=== PATIENT | female | born 1955 | race Caucasian/White ===

== ENCOUNTER 2022-08-25 11:34 | Outpatient (CLI) | payer MEDICARE, OTHER, SELFPAY ==
[2022-08-25 15:26] LABS: Anion Gap 9 mmol/L (8-16); Blood Urea Nitrogen 17 mg/dL (7-17); Calcium 9.1 mg/dL (8.4-10.2); Carbon Dioxide 26 mmol/L (22-30); Chloride 102 mmol/L (98-107); Estimated Glomerular Filt Rate > 60; Glucose 75 mg/dL (65-110); Magnesium 2.3 mg/dL (1.6-2.3); Sodium 137 mmol/L (137-145)
== END 2022-08-25 11:35 | disposition home or self-care (01) ==
PROVIDERS: Visit Provider Nurse Practitioner Adult Health
DX: I48.0 Paroxysmal atrial fibrillation (principal)
CPT/HCPCS: 36415; 80048; 83735; 84443

== ENCOUNTER 2023-07-10 14:09 | Outpatient (CLI) | payer MEDICARE, OTHER, SELFPAY ==
--- NOTE | ~2023-07-10 | CT_ITS ---
EXAMINATION:CT diagnostic chest wo con DATE: 07/10/2023 14:31 INDICATION: Aortic root dilatation. TECHNIQUE: Computed tomography (CT) of the chest was performed without intravenous contrast. Automate d exposure control and iterative reconstruction technique were employed. The dose-length product (DLP ) was 212.41 mGy-cm. COMPARISON: None. FINDINGS: There is mild scarring in paraspinal right lower lobe. Calcified right lung nodules are con sistent with old granulomatous disease. There is mild atelectasis on the left. No pleural effusion. T here is left atrial enlargement of the heart. There are coronary artery calcifications. There are yane nges of mitral valve replacement. There are measures 4.1 cm at the sinuses of Valsalva, 3.9 cm at the sinotubular junction, 4.1 cm at the mid ascending aorta, 3.0 cm at the aortic isthmus, and 2.5 cm in the mid descending aorta. Aortic atherosclerosis is noted. There are changes of cholecystectomy. The re is a 7 mm cyst in the spleen. There is moderate thoracic spondylosis. IMPRESSION: 1. Ectasia of ascending aorta measuring 4.1 cm. Reviewed, dictated and finalized at location E.
== END 2023-07-10 14:10 | disposition home or self-care (01) ==
PROVIDERS: PCP Family Medicine; Visit Provider Internal Medicine Cardiovascular Disease
DX: I77.810 Thoracic aortic ectasia (principal)
CPT/HCPCS: 71250

== ENCOUNTER 2023-07-13 10:41 | Emergency (ER) | payer MEDICARE, OTHER, SELFPAY ==
[2023-07-13] VITALS (34 sets, daily range): BP systolic 100–141; BP diastolic 74–129; PULSE 72–138; RESP 12–25; TEMP 35.9–37; O2SAT 93–100
--- NOTE | ~2023-07-13 | CT_ITS ---
. EXAMINATION: CT brain wo con DATE: 07/13/2023 14:37 INDICATION: Syncopal episodes diaphoresis, paleness TECHNIQUE: Computed tomography (CT) of the head was performed without intravenous contrast. The mA wa s adjusted according to patient size. Iterative reconstruction technique was employed. Exam dose: 60 5.33 mGy-cm total exam DLP. COMPARISON: None FINDINGS: There are bilateral carotid siphon internal carotid artery calcifications in addition to le ft vertebral artery calcification. Examination is somewhat limited due to motion artifact. No intracranial mass lesion or hemorrhage or cerebrovascular accident, midline shift or mass effect i s detected. Normal ventricular size. No subdural or epidural hematoma is identified. There is an opacified posterior left ethmoid air cell. No fracture or bone destruction of the cranial vault. IMPRESSION: Limited examination due to motion artifact; no acute intracranial finding is noted Intracranial cerebral atherosclerosis Reviewed, dictated and finalized at Location A. Reviewed, dictated and finalized at location L.
--- NOTE | ~2023-07-13 | XR_ITS ---
EXAMINATION: XR chest 1V portable INDICATION: Near syncope TECHNIQUE: Portable AP chest at 1652 hours COMPARISON: None available FINDINGS: The lungs are free of acute opacities. No pleural effusion or pneumothorax. Cardiomegaly is noted. There are changes of coronary artery bypass grafting and mitral valve replacement. Cholecyste ctomy clips are noted. IMPRESSION: 1. No acute cardiopulmonary abnormality. Reviewed, dictated and finalized at location F.
--- NOTE | 2023-07-13 10:42 | ECG_ITS ---
Measurements Intervals [place] Rate: 69 P: [place]: 0 QRS: -14 QRSD: 114 T: 80 QT: 398 QTc: 427 Interpretive Statements ATRIAL FIBRILLATION INCOMPLETE RIGHT BUNDLE BRANCH BLOCK PROBABLE SEPTAL MYOCARDIAL INFARCTION , OF INDETERMINATE AGE ABNORMAL ECG NO PREVIOUS ECG AVAILABLE FOR COMPARISON Electronically Signed On 07-13-2023 17:19:07 CDT by Emmanuel Eubanks M.D.
[2023-07-13 11:15] LABS: Basophils Absolute Auto 0.1 K/mm3 (0.0-0.1); Basophils Percent Auto 0.6 % (0.2-1.2); Eosinophils Absolute Auto 0.1 K/mm3 (0-0.3); Eosinophils Percent Auto 1.1 % (0-4.4); Hematocrit 46.9 % (37.0-47.0); Hemoglobin 14.8 g/dL (12.0-15.0); Immature Granulocyte Absolute 0.08 K/mm3 (0.00-0.031); Immature Granulocyte Percent A 0.7 % (0-0.5); Lymphocytes Absolute Auto 0.89 K/mm3 (0.9-3.2); Lymphocytes Percent Auto 8.2 % (18.3-44.2); Mean Corpuscular HGB Conc 31.6 g/dl (32-36); Mean Corpuscular Hemoglobin 29.7 pg (26-34); Mean Corpuscular Volume 94.2 fl (80-100); Mean Platelet Volume 9.3 fl (7.4-10.4); Monocytes Absolute Auto 0.8 K/mm3 (0.1-0.6); Monocytes Percent Auto 7.2 % (2.6-8.5); Neutrophils Absolute Auto 8.9 K/mm3 (1.3-6.7); Neutrophils Percent Auto 82.2 % (45.5-73.1); Platelet Count Result 306 k/mm3 (150-375); Red Blood Count 4.98 M/mm3 (4.2-5.4); Red Cell Distribution Width 14.2 % (11.5-14.5); White Blood Count 10.8 K/mm3 (4.5-10.0)
[2023-07-13 11:26] LABS: Alanine Aminotransferase 22 U/L (6-35); Albumin Level 4.6 g/dL (3.5-5.1); Alkaline Phosphatase 97 U/L (38-126); Anion Gap 10 mmol/L (8-16); Aspartate Amino Transferase 30 U/L (14-36); Bilirubin,Total 0.6 mg/dL (0.2-1.3); Blood Urea Nitrogen 27 mg/dL (7-17); Calcium 9.5 mg/dL (8.4-10.2); Carbon Dioxide 25 mmol/L (22-30); Chloride 103 mmol/L (98-107); Estimated CRCL calculation 57 ml/min; Estimated Glomerular Filt Rate > 60; Glucose 93 mg/dL (65-110); Potassium 3.4 mmol/L (3.4-5.0); Sodium 138 mmol/L (137-145)
[2023-07-13 14:39] LABS: Magnesium 2.1 mg/dL (1.6-2.3)
[2023-07-13 14:51] LABS: Troponin I < 0.012 ng/mL (0.000-0.034)
--- NOTE | 2023-07-13 15:12 | ECG_ITS ---
Measurements Intervals [place] Rate: 118 P: [place]: 0 QRS: -15 QRSD: 105 T: 69 QT: 320 QTc: 448 Interpretive Statements ATRIAL FIBRILLATION WITH RAPID VENTRICULAR RESPONSE INCOMPLETE RIGHT BUNDLE BRANCH BLOCK POSSIBLE SEPTAL MYOCARDIAL INFARCTION , PROBABLY OLD [30 ms Q WAVE IN V1/V2] ABNORMAL ECG COMPARED TO ECG 07/13/2023 10:59:31 NO SIGNIFICANT CHANGES Electronically Signed On 07-13-2023 17:25:08 CDT by Emmanuel Eubanks M.D.
[2023-07-13] MEDS: METOPROLOL TARTRATE INJ 5 MG/5 ML VIAL IV PUSH (15:24)
[2023-07-13] MEDS: SODIUM CHLORIDE 0.9% IV 1,000 ML 999 ML IV CONT (15:24)
[2023-07-13 15:33] LABS: Appearance Urine Cloudy (Clear); Bacteria Urine None Seen /hpf; Bilirubin Urine Negative (Negative); Blood Urine Trace (Negative); Color Urine Yellow (Yellow); Glucose Urine UA Negative (Negative); Ketones Urine Negative (Negative); Leukocyte Esterase Ur 3+ LEU/UL (Negative); Need Manual Microscopic Reviewed; Nitrate Urine Negative (Negative); Protein Urine Negative (Negative); RBC Urine 0-2 /hpf (0-2); Squamous Epithelial Cell Urine Occasional /hpf (Few); Urobilinogen Urine 0.2 mg/dL (<2.0); WBC Urine 51-100 /hpf; pH Urine 5.5 (5.0-9.0)
[2023-07-13 15:34] LABS: Add Urine Microscopic? YES
[2023-07-13 15:48] LABS: INR 2.4
[2023-07-13 15:49] LABS: Partial Thromboplastin Time 31.4 SECONDS (22.3-36.8)
--- NOTE | 2023-07-13 16:28 | ED.DIZZY ---
HPI - Dizziness General Chief Complaint: Syncope Stated Complaint: Syncope Time Seen by Provider: 07/13/23 14:14 Source: patient Mode of arrival: EMS Limitations: no limitations History of Present Illness HPI Narrative: Patient is a 68-year-old female, with pAFIB on warfarin, mechanical mitral valve repair, HTN, who presents to the ED via EMS with report of near syncope. Patient reports she was fasting for outpatient blood work this morning since midnight last night. She had the blood work done this am and then went shopping at a local [place]. Upon walking into [place], she developed diaphoresis, nausea, lightheadedness. She felt like she was about to pass out. She was able to get to the ground and does not believe that she fully lost consciousness. EMS was then called to bring her here. Patient states she feels better currently, but did still feel lightheaded with standing upright in the ED. She denies chest pain, shortness of breath, palpitations, vomiting, abdominal pain, focal weakness or numbness, vision changes. Related Data Allergies Allergy/AdvReac Type Severity Reaction Status Date / Time Scyujmp-SBN-KpM Reductase Allergy Rash Verified 07/13/23 16:49 Inhibitor meperidine [From Demerol] AdvReac Hallucinati Verified 07/13/23 16:49 ng Review of Systems Review of Systems: CONSTITUTIONAL: See HPI. EYES: Denies visual changes. CARDIOVASCULAR: Denies chest pain, palpitations, or edema. RESPIRATORY: Denies cough or dyspnea. GASTROINTESTINAL: See HPI. MUSCULOSKELETAL: Denies back pain, joint pain, or myalgia. NEUROLOGIC: See HPI. All systems reviewed & are unremarkable except as noted in HPI and below Exam Narrative: GENERAL: Well appearing, well-nourished, non-toxic, in no acute distress. HEAD: Normocephalic, atraumatic. EYES: PERRL/EOMI, conjunctivae clear bilaterally. No nystagmus. NECK: Supple. No adenopathy, no masses. RESPIRATORY: Airway patent, respirations nonlabored. Clear to auscultation bilaterally, no rales, rhonchi, wheezing. CARDIOVASCULAR: Tachycardic with irregular rhythm without murmurs, rubs, or gallops. Radial pulses 2+ and equal bilaterally. MUSCULOSKELETAL: Moves all extremities. Strength/ROM intact without gross deformities or TTP. No edema. No calf tenderness. SKIN: Warm, dry, normal color. No rashes. NEURO: A&O X3. Speech clear. Follows commands. CN II-XII intact. Sensation grossly intact. Steady gait. No ataxic movements. Strength 5/5 in upper and lower extremities bilaterally. No pronator drift. Equal community health advocate strength bilaterally. PSYCHIATRIC: Appropriate mood and affect. Normal interaction. Course Vital Signs Vital signs: Vital Signs Temperature 98.6 F 07/13/23 10:44 Pulse Rate 92 07/13/23 10:44 Respiratory Rate 18 07/13/23 10:44 Blood Pressure 100/74 07/13/23 10:44 Pulse Oximetry 93 07/13/23 10:44 Oxygen Delivery Room Air 07/13/23 10:44 Temperature 97.2 F L 07/13/23 17:31 Pulse Rate 93 07/13/23 19:00 Respiratory Rate 16 07/13/23 19:00 Blood Pressure 135/99 H 07/13/23 18:01 Pulse Oximetry 97 07/13/23 19:00 Oxygen Delivery Room Air 07/13/23 10:44 MDM - Dizziness MDM Narrative Medical decision making narrative: Patient presented to ED with near syncopal episode. She did not fully lose consciousness. Asymptomatic at the time of my evaluation. Denying lightheadedness, nausea, chest pain, difficulty breathing. Description of sx's seems most consistent with vasovagal episode, prodrome of lightheadedness, occurred after fasting overnight into the morning. Upon arrival to the ED, patient with normal heart rate, A-fib. By the time of my evaluation, patient was noted to be in A-fib with RVR with rates into 120s. Neurologically intact. No focal deficits. Fluids initiated with dose of IV metoprolol. Basic laboratory studies fairly unremarkable. Minimal leukocytosis of 10.8. CMP unremarkable. Stable electrolytes. Urine consistent with in
--- NOTE | 2023-07-13 16:46 | PC.NURSE ---
Pt refusing diltiazem until her provider consults with her cards doc, Sabine. MYLA Mays, at bedside to speak with her.
[2023-07-13 16:56] LABS: Troponin I < 0.012 ng/mL (0.000-0.034)
[2023-07-13] MEDS: SOTALOL HCL 40 MG TABLET PO (17:30)
[2023-07-13] MEDS: WARFARIN (*PBKC) 3 MG TABLET PO (17:31)
[2023-07-13] MEDS: dilTIAZem HCl INJ 25 MG/5 ML VIAL 10 MG IV PUSH (17:33)
--- NOTE | 2023-07-13 19:06 | ECG_ITS ---
Measurements Intervals [place] Rate: 67 P: -40 [place]: 137 QRS: -16 QRSD: 106 T: 82 QT: 407 QTc: 430 Interpretive Statements SINUS RHYTHM INCOMPLETE RIGHT BUNDLE BRANCH BLOCK [90+ ms QRS DURATION, TERMINAL R IN V1/V2, 40+ ms S IN I/aVL/V4/V5/V6] COMPARED TO ECG 07/13/2023 15:04:45 SINUS RHYTHM REPLACES ATRIAL FIBRILLATION Electronically Signed On 07-15-2023 8:43:26 CDT by Venu Arshad M.D.
== END 2023-07-13 19:42 | disposition home or self-care (01) ==
PROVIDERS: Emergency Medicine; Emergency Provider Physician Assistant; PCP Family Medicine
DX: R55 Syncope and collapse (principal); I48.91 Unspecified atrial fibrillation; N30.00 Acute cystitis without hematuria; I10 Essential (primary) hypertension; I67.2 Cerebral atherosclerosis; Z79.01 Long term (current) use of anticoagulants; I45.10 Unspecified right bundle-branch block; R94.31 Abnormal electrocardiogram [ECG] [EKG]
CPT/HCPCS: 36415; 70450; 71045; 80053; 81001; 83735; 84484; 85025; 85610; 85730; 87086; 87088; 93005; 96361; 96365; 96375; 99284; A9270; J0696; J7030

== ENCOUNTER 2025-02-11 14:37 | Outpatient (CLI) | payer MEDICARE, OTHER, SELFPAY ==
--- NOTE | ~2025-02-11 | CT_ITS ---
CT Scan of the Chest without Contrast: Clinical Indication: Aortic root dilatation Technique: Contiguous sections were acquired throughout the chest without intravenous contrast. Dose reduction technique was used on this scan by utilizing automated exposure control and iterative recon struction technique. The dose-length product (DLP) was 216.50 mGy-cm. COMPARISON: 07/10/2023 Findings: There is no evidence of any significant mediastinal, hilar or axillary lymphadenopathy. Extensive cor onary artery calcifications are present. Status post probable prior CABG and mitral valve replacement . Aortic root measures up to 4.2 cm in diameter. There is no evidence of pleural or pericardial effusion. The lungs are clear. No pulmonary nodules or infiltrates are noted. Images through the upper abdomen reveal no abnormalities. Impression: Aortic root measures up to 4.2 cm in diameter. Probable prior CABG and mitral valve replacement. Reviewed, dictated and finalized at [facility]. Impression: Aortic root measures up to 4.2 cm in diameter. Probable prior CABG and mitral valve replacement.
--- OUTSIDE RECORDS SUMMARY | 2025-02-11 10:56 | XMS_ITS | Encounter Summary ---
Author Organization [facility] Address [address] [facility] Attn: Epic Prelude ADT ZACHARIAHWINSOME ODELL CASI [address] Care Team Providers Care Line Pilot Name Role Phone Unavailable Primary Care Provider Unavailabl e Encounter Details Date Type Department Care Team (Late st Contact Info) Description 11/21/1995 Outpatient Historical Venu Martins Social History Tobacco Use Types Packs/Day Years Used Date Smoking Tobacco: Never Assessed Comments Unknown Sex and Gender Information Value Date Recorded Sex Assigned at Not on file Legal Sex Female 2:57 AM MANAGEMENT ACCOUNTANT Gender Identity Not on file Sexual Orientation Not on file documented as of this encounter Plan of Treatment Not on file documented as of this encounter Visit Diagnoses Not on filedocumented in this encounter
--- OUTSIDE RECORDS SUMMARY | 2025-02-11 10:56 | XMS_ITS | Encounter Summary ---
Author Organization [facility] Healthcare Address [address] [place] [address] Care Team Providers Care Rubber Stamp Die Inspector Name Role Phone Brionna Antony MD Primary Care Provider [phone] Shannon Beck Unavailable [phone] Encounter Details Date Type Department Care Team (Late st Contact Info) Description 04/18/2024 Orders Only [facility] [place] Health Information Management [address] [place] [id number] Scanning, Provider Social History Tobacco Use Types Packs/Day Years Used Date Smoking Tobacco: Former Cigarettes Smokeless Tobacco: Never Comments Unknown Sex and Gender Information Value Date Recorded Sex Assigned at Not on file Legal Sex Female 2:09 PM CDT Gender Identity Not on file Sexual Orientation Not on file documented as of this encounter Plan of Treatment Not on file documented as of this encounter Procedures Procedure Name Priority Date/Time Associated Diagnosis Comments SCAN - LABS 04/18/2024 documented in this encounter Results * SCAN - LABS (04/18/2024) Provider Scanning Final Result documented in this encounter Visit Diagnoses Not on filedocumented in this encounter Care Teams Rubber Stamp Die Inspector Relationship Specialty Start Date End Date Brionna Antony MD [address] [place] [address] PCP - General Family Medicine 03/19/20 Shannon Beck PA [address] [place] [address] Physician Vacuum Drier Operator Family Medicine 03/24/20 documented as of this encounter
--- OUTSIDE RECORDS SUMMARY | 2025-02-11 10:56 | XMS_ITS | Encounter Summary ---
Author Organization [email or web address] Address [address] [place] [address] Care Team Providers Care Insights Strategist Name Role Phone Unavailable Primary Care Provider Unavailabl e Encounter Details Date Type Department Care Team (Late st Contact Info) Description 07/06/1999 Outpatient Historical [facility],NON-PATIENT Venu Martins Social History Tobacco Use Types Packs/Day Years Used Date Smoking Tobacco: Never Assessed Comments Unknown Sex and Gender Information Value Date Recorded Sex Assigned at Not on file Legal Sex Female 2:57 AM SUPERINTENDENT CONSTRUCTION Gender Identity Not on file Sexual Orientation Not on file documented as of this encounter Plan of Treatment Not on file documented as of this encounter Visit Diagnoses Not on filedocumented in this encounter
--- OUTSIDE RECORDS SUMMARY | 2025-02-11 10:56 | XMS_ITS | Encounter Summary ---
Author Organization [facility] Address [address] [place] [address] Care Team Providers Care Upholsterer Assembly Line Name Role Phone Ravindra Falk MD Unavailable [phone] Brionna Antony MD Primary Care Provider [phone] Ángel Linder MD Unavailable Unavailabl e Anthony Benitez TOE STRIPPER Unavailable [phone] Encounter Details Date Type Department Care Team (Late st Contact Info) Description 12/09/2017 Abstract [facility] [address] [place] [address] , Generic ConversionMD Social History Tobacco Use Types Packs/Day Years Used Date Smoking Tobacco: Former Cigarettes Q uit: 2004 Smokeless Tobacco: Never Alcohol Use Standard Drinks/Week Comments Yes 6.7 (1 standard drink = 0.6 oz p ure alcohol) wine 4-5 per week Comments Unknown Sex and Gender Information Value Date Recorded Sex Assigned at Not on file Legal Sex Female 9:27 PM CDT Gender Identity Not on file Sexual Orientation Not on file Occupation Industry Job Start Date Job End Date homemaker Not on file Not on file Not on file documented as of this encounter Plan of Treatment Not on file documented as of this encounter Visit Diagnoses Not on filedocumented in this encounter Care Teams Upholsterer Assembly Line Relationship Specialty Start Date End Date Brionna Antony MD [address] [place] [phone] PCP - General FAMILY PRACTICE 08/05/16 Ravindra Falk MD CARDIOVASCULAR DISEASE 04/05/16 Ángel Linder MD [address] [place] [phone] Vascular/Coin Purse Assembler CLINICAL CARDIAC ELECTROPHYSIOLOGY 10/25/18 Anthony Benitez APRN [address] [place] [address] [phone] Nurse Practitioner NURSE PRACTITIONER 04/04/19 documented as of this encounter
--- OUTSIDE RECORDS SUMMARY | 2025-02-11 10:56 | XMS_ITS | Clinical Summary ---
Author Organization [facility] Address [address] [place] [address] Phone Care Team Providers Care Forestry Consultant Name Role Phone Unavailable Primary Care Provider Unavailabl e Allergies Active Allergy Reactions Criticality Noted Date Comments Amlodipine Swelling Low 12/06/2011 Hydrochlorothiazide Nausea and Vomiting Low 012 Lisinopril Cough Low 11/29/2011 Meperidine Hallucination Low 11/29/2011 Oxycodone-Acetaminophen Swelling Low 11/29/2011 Valsartan Swelling Low 11/29/2011 Medications atenolol (TENORMIN) 50 mg Oral tablet Take 50 mg by mouth daily. Active esomeprazole (NEXIUM) 20 mg Oral CpDR Take 40 mg by mouth daily before breakfast. Active ALPRAZolam (XANAX) 0.5 mg Oral tablet Take 0.5 mg by mouth nightly as needed. Active aspirin (LULY) 81 mg Oral Tab Take 81 mg by mouth daily with breakfast. Active polycarbophil calcium (FIBERCON) 625 mg Oral tablet Take 625 mg by mouth daily. Active HYDROcodone-gerry taminophen (NORCO) 7.5-325 mg Oral Tab Take 1 Tab by mouth every 4 hours as needed for Pain, Severe (For Pain Scale 7-10). 30 Tab 0 12/07/2011 Active ibuprofen (MOTRIN) 600 mg Oral tablet Take 1 Tab by mouth every 8 hours as needed for Pain. 60 Tab 1 12/07/2011 Active Active Problems Problem Noted Date Diagnosed Date anterior repair, vag packing 12/06/2011 Social History Tobacco Use Types Packs/Day Years Used Date Smoking Tobacco: Former Cigarettes 0 09/25/1983 - 09/25/2003 Alcohol Use Standard Drinks/Week Comments Yes 0 (1 standard drink = 0.6 oz pur e alcohol) social Comments Unknown Sex and Gender Information Value Date Recorded Sex Assigned at Not on file Legal Sex Female 2:57 AM CHIEF SPECIALIST LEED Gender Identity Not on file Sexual Orientation Not on file Last Filed Vital Signs Vital Sign Reading Time Taken Comments Blood Pressure 120/60 12/07/2011 10:26 AM CDT Pulse 73 12/07/2011 7:49 AM CDT Temperature 35.9 C (96.7 F) 12/07/2011 7:49 AM CDT Respiratory Rate 16 12/07/2011 7:49 AM CDT Oxygen Saturation 97% 12/07/2011 7:49 AM CDT Inhaled Oxygen Concentration - - Weight 80.8 kg (178 lb 3.2 oz) 11/29/2011 1:31 P M CHIEF SPECIALIST LEED Height 185.4 cm (6' 1 ) 11/29/2011 1:31 PM CHIEF SPECIALIST LEED Body Mass Index 23.51 11/29/2011 1:31 PM CHIEF SPECIALIST LEED Plan of Treatment Health Maintenance Due Date Last Done Comments DTAP/TDAP/TD VACCINES (1 - Tdap) 1972 BREAST CANCER SCREENING 1993 COLORECTAL SCREENING 1998 Colorectal Cancer Screening 1998 FIT-DNA Q 3 years 1998 FIT/FOBT Q 1 year 1998 Flex Sig/CT Colonography Q 5 years 1998 PNEUMOCOCCAL VACCINE 50+ YEARS (1 of 1 - PCV) 06/12/20 03 ZOSTER VACCINE (1 of 2) 2003 OSTEOPOROSIS SCREENING 2018 INFLUENZA VACCINE (#1) 2024 RSV VACCINE (60+ or ) (1 - 1-dose 75+ series) 2028 Insurance [employer] O OPEN ACCESS Advance Directives For more information, please contact: [phone] * Full Code (Latest Code Status on File) Date Activated Date Inactivated Comments 12/06/2011 2:52 PM 12/07/2011 1:06 PM * Full Code Date Activated Date Inactivated Comments 12/06/2011 9:13 AM 12/06/2011 2:52 PM
--- OUTSIDE RECORDS SUMMARY | 2025-02-11 10:56 | XMS_ITS | Encounter Summary ---
Author Organization [facility] Address [address] [facility] Attn: Epic Prelude ADT ZACHARIAHWINSOME ODELL CASI [address] Care Team Providers Care Carbon Brushes Assembler Name Role Phone Unavailable Primary Care Provider Unavailabl e Encounter Details Date Type Department Care Team (Late st Contact Info) Description 10/14/1997 Outpatient Historical Conversion, History Venu Martins Social History Tobacco Use Types Packs/Day Years Used Date Smoking Tobacco: Never Assessed Comments Unknown Sex and Gender Information Value Date Recorded Sex Assigned at Not on file Legal Sex Female 2:57 AM MOBILE HEAVY EQUIPMENT OPERATOR Gender Identity Not on file Sexual Orientation Not on file documented as of this encounter Plan of Treatment Not on file documented as of this encounter Visit Diagnoses Not on filedocumented in this encounter
--- OUTSIDE RECORDS SUMMARY | 2025-02-11 10:56 | XMS_ITS | Encounter Summary ---
Author Organization [facility] Address [address] [facility] Attn: Epic Prelude ADT ZACHARIAHWINSOME ODELL [place] [address] Care Team Providers Care Supervisor Water Softener Service Name Role Phone Unavailable Primary Care Provider Unavailabl e Encounter Details Date Type Department Care Team (Late st Contact Info) Description 03/20/1997 Outpatient Historical Conversion, History Venu Martins Social History Tobacco Use Types Packs/Day Years Used Date Smoking Tobacco: Never Assessed Comments Unknown Sex and Gender Information Value Date Recorded Sex Assigned at Not on file Legal Sex Female 2:57 AM NEUROPSYCHOLOGY DIVISION CHIEF Gender Identity Not on file Sexual Orientation Not on file documented as of this encounter Plan of Treatment Not on file documented as of this encounter Visit Diagnoses Not on filedocumented in this encounter
--- OUTSIDE RECORDS SUMMARY | 2025-02-11 10:56 | XMS_ITS | Encounter Summary ---
Author Organization [facility] Address [address] [facility] Attn: Epic Prelude ADT ZACHARIAHWINSOME ODELL CAS[place] [address] Care Team Providers Care Company Marker Name Role Phone Unavailable Primary Care Provider Unavailabl e Encounter Details Date Type Department Care Team (Late st Contact Info) Description 01/27/1994 Outpatient Historical Venu Martins Social History Tobacco Use Types Packs/Day Years Used Date Smoking Tobacco: Never Assessed Comments Unknown Sex and Gender Information Value Date Recorded Sex Assigned at Not on file Legal Sex Female 2:57 AM LEARNING STRATEGIST Gender Identity Not on file Sexual Orientation Not on file documented as of this encounter Plan of Treatment Not on file documented as of this encounter Visit Diagnoses Not on filedocumented in this encounter
--- OUTSIDE RECORDS SUMMARY | 2025-02-11 10:56 | XMS_ITS | Encounter Summary ---
Author Organization [facility] [place] [facility] Address [address] [place] [address] Care Team Providers Care Quilting Machine Helper Name Role Phone Non-Staff, Provider Primary Care Provider Ravindra Sanchez MD Unavailable [phone] None, Provider Primary Care Provider UnavailBrionna Quiñonez MD Primary Care Provider [phone] Ángel Linder MD Unavailable UnavailAnthony Draper APRN Unavailable [phone] Encounter Details Date Type Department Care Team (Late st Contact Info) Description 07/31/2015 Abstract [facility] [address] [place] [address] Ravindra Falk MD [address] [facility], [address] [place] [address] Social History Tobacco Use Types Packs/Day Years Used Date Smoking Tobacco: Former Alcohol Use Standard Drinks/Week Comments Yes 0 (1 standard drink = 0.6 oz pur e alcohol) wine 4-5 per week Comments Unknown [...] on filedocumented in this encounter Care Teams Quilting Machine Helper Relationship Specialty Start Date End Date Non-Staff, Provider PCP - General 04/05/16 04/09/16 None, Provider, PCP - General 04/10/16 08/04/16 Brionna Antony MD [address] [place] [phone] PCP - General FAMILY PRACTICE 08/05/16 Ravindra Falk MD CARDIOVASCULAR DISEASE 04/05/16 Ángel Linder MD [address] [place] [address] Vascular/Gym Instructor CLINICAL CARDIAC ELECTROPHYSIOLOGY 10/25/18 Anthony Benitez, DEVIKA [address] [place] [phone] Nurse Practitioner NURSE PRACTITIONER 04/04/19 documented as of this encounter
--- OUTSIDE RECORDS SUMMARY | 2025-02-11 10:56 | XMS_ITS | Encounter Summary ---
Author Organization [facility] Healthcare Address [address] [place] [address] Care Team Providers Care Business Quality Assurance Analyst Name Role Phone Brionna Antony MD Primary Care Provider [phone] Shannon Beck Unavailable [phone] Encounter Details Date Type Department Care Team (Late st Contact Info) Description 03/21/2024 Orders Only [facility] [place] Information Management [address] [place] [id number] Scanning, Provider Social History Tobacco Use Types [...] Date/Time Associated Diagnosis Comments SCAN - LABS 03/21/2024 documented in this encounter Results * SCAN - LABS (03/21/2024) Provider Scanning Final Result documented in this encounter Visit Diagnoses Not on filedocumented in this encounter Care Teams Business Quality Assurance Analyst Relationship Specialty Start Date End Date Brionna Antony MD [address] [place] [address] PCP - General Family Medicine 03/19/20 Shannon Beck PA [address] [place] [address] Physician Support Merchandiser Family Medicine 03/24/20 documented as of this encounter
--- OUTSIDE RECORDS SUMMARY | 2025-02-11 10:56 | XMS_ITS | Referral Summary ---
Author Organization [facility] [address] [facility] Address [address] [place] [address] Care Team Providers Care Global Logistics Manager Name Role Phone Brionna Antony MD Primary Care Provider Shannon Beck Unavailable [phone] Encounters Date Type Department Care Team Description 02/06/2025 Anticoagulation Visit [facility] Cardiology [address] [place] [address] [address] [place] [phone] Coretta Nova, GARY 02/05/2025 10:00 AM CDT Office Visit [facility] Cardiology [address] [place] [address] [place] [phone] Cam Regalado MD Coronary artery disease of [place] artery [place] heart with stable angina pectoris (Primary Dx); Hyperlipidemia LDL goal <70; PAF (paroxysmal atrial fibrillation) (HCC); Pulmonary hypertension (HCC); Aortic root dilatation; Valvular heart disease 01/30/2025 Anticoagulation Visit [facility] Cardiology [address] [place] [address] [place] [phone] Deanne Vergara, GARY 01/23/2025 Anticoagulation Visit [facility] Cardiology [address] [place] [address] [place] [phone] Coretta Nova, GARY 01/16/2025 Anticoagulation Visit [facility] Cardiology [address] [facility] [address] [place] [phone] Deanne Vergara, RN 01/10/2025 Anticoagulation Visit [facility] Cardiology [address] [place] [address] [address] [place] [phone] Cam Thomas, GARY 01/02/2025 Anticoagulation Visit [facility] Cardiology [address] [place] [address] [place] [phone] Daly Wilkes, GARY 12/26/2024 Anticoagulation Visit [facility] Cardiology [address] [place] [address] [place] [phone] Daly Wilkes, GARY 12/19/2024 Anticoagulation Visit [facility] Cardiology [address] [place] [address] [place] [phone] Daly Wilkes, GARY 12/12/2024 Anticoagulation Visit [facility] Cardiology [address] [place] [address] [place] [phone] Deanne Vergara RN 12/05/2024 Anticoagulation Visit [place] [address] [place] [phone] Deanne Vergara, GARY 11/28/2024 Anticoagulation Visit [facility] Cardiology [address] [place] [address] [place] [phone] Cam Thomas, GARY 11/21/2024 Anticoagulation Visit [facility] Cardiology [address] [place] [address] [place] [phone] Deanne Vergara, GARY 11/14/2024 Anticoagulation Visit [facility] Cardiology [address] [place] [address] [place] [phone] Cam Thomas, RN from Last 3 Months Allergies Active Allergy Reactions Criticality Noted Date Comments Nebivolol Shortness of breath High 08/25/2022 Valsartan Swelling Medium 08/25/2022 Hydrochlorothiazide Swelling Medium 08/25/2022 Lisinopril Cough Low 11/29/2011 Amlodipine Swelling Medium 08/25/2022 Oxycodone Swelling Medium 04/04/2016 Evolocumab Muscle pain Medium 02/24/2023 Wjcyvmx-Jtu-Bew Reductase Inhibitors Muscle pain Medium 04/04/2016 atorvastatin, crestor, and lovastatin all caused severe, persistent, and intolerable myalgias Medications furosemide (LASIX) 40 mg tablet Take 1 tablet (40 mg total) by mouth daily Active isosorbide mononitrate ER (IMDUR) 30 mg 24 hr tablet Take 1 tablet (30 mg total) by mouth every evening Active famotidine (PEPCID) 40 mg tablet Take 1 tablet (40 mg total) by mouth daily as needed for heartburn Active verapamil SR (CALAN SR) 240 mg CR tablet Take 1 tablet (240 mg total) by mouth daily 2 Active warfarin (COUMADIN) 3 mg tablet Take 1 tablet (3 mg total) by mouth daily Active aspirin 81 mg enteric coated tablet Take 1 tablet (81 mg total) by mouth daily Active docusate sodium (STOOL SOFTENER ORAL) Take by mouth Active sotaloL (BETAPACE) 80 mg tablet Take 0.5 tablets (40 mg total) by mouth 2 (two) times a day 2 Active acetaminophen (TYLENOL) 500 mg tablet Take 1 tablet (500 mg total) by mouth every 6 (six) hours as needed for pain Active acidophilus-pect in, citrus 100 million cell-10 mg capsule Take by mouth Activ e biotin 1 mg capsule Take by mouth Active Active Problems Problem Noted Date Diagnosed Date Chronic anticoagulation 07/08/2022 History of rheumatic fever 07/08/2022 Hyperlipidemia LDL goal <70 07/08/2022 Pulmonary hypertension 07/08/2022 Aortic root dilatation 07/08/2022 Benign hypertensive heart disease without heart failure 07/08/2022 Valvular heart disease 07/08/2022 PAF (paroxysmal atrial fibrillation) 07/08/2022 Coronary artery disease of [place] artery [place] heart with stable angina pectoris 07/08/2022 Social History Tobacco Use Types Packs/Day Years Used Date Smoking Tobacco: Former Cigarettes Smokeless Tobacco: Never Tobacco Cessation:Counseling Given: Not Answered Comments Unknown Sex and Gender Information Value Date Recorded Sex Assigned at Not on file Legal Sex Female 2:09 PM CDT Gender Identity Not on file Sexual Orientation Not on file Last Filed Vital Signs Vital Sign Reading Time Taken Comments Blood Pressure 102/66 02/05/2025 10:16 AM CDT Pulse 60 02/05/2025 10:16 AM CDT Temperature - - Respiratory Rate - - Oxygen Saturation 97% 02/05/2025 10:16 AM CDT Inhaled Oxygen Concentration - - Weight 90.3 kg (199 lb) 02/05/2025 10:16 AM CDT Height 180.3 cm (5' 11 ) 02/05/2025 10:16 AM CDT Body Mass Index 27.75 02/05/2025 10:16 AM CDT Plan of Treatment Not on file Procedures Procedure Name Priority Date/Time Associated Diagnosis Comments PROTIME-INR Routine 02/06/2025 ELECTROCARDIOGRAM REPORT Routine 025 11:50 AM CDT Coronary artery disease of [place] artery [place] heart with stable angina pectoris PAF (paroxysmal atrial fibrillation) (HCC) POCT LIPID PANEL Routine 02/05/2025 10:1 9 AM CDT Coronary artery disease of [place] artery [place] heart with stable angina pectoris Hyperlipidemia LDL goal <70 PROTIME-INR Routine 01/30/2025 PROTIME-INR Routine 01/23/2025 PROTIME-INR Routine 01/16/2025 PROTIME-INR Routine 01/10/2025 PROTIME-INR Routine 01/02/2025 PROTIME-INR Routine 12/26/2024 PROTIME-INR Routine 12/19/2024 PROTIME-INR Routine 12/12/2024 PROTIME-INR Routine 12/05/2024 PROTIME-INR Routine 11/28/2024 PROTIME-INR Routine 11/21/2024 PROTIME-INR Routine 11/14/2024 from Last 3 Months Results * (ABNORMAL) Protime-INR (02/06/2025) INR 3.00(A) 0.90 - 1.10 EXTERNAL LAB Blood Result [facility] Historical Provider LAB BLOOD ORDERABLES Celine l Result EXTERNAL LAB * Electrocardiogram Report (02/05/2025 11:50 AM CDT) Result [facility] Cam Regalado MD ECG ORDERABLES Final Res ult * (ABNORMAL) POCT lipid panel (02/05/2025 10:19 AM CDT) Pathologist [facility] Cholesterol, POC 271 <200 MG/DL HDL, POC 51 >=40 mg/dL Triglycerides, POC 187(A) <=149 mg/dL LDL Cholesterol POC 183(A) <=129 mg/dL Chol/HDL Ratio, POC 3.6 NONE Non-HDL Cholesterol, POC 220 NONE mg/dL Cholesterol Total, POC 271(A) 30 - 199 mg/dL Capillary blood 02/05/2025 1 0:19 AM CDT Result [facility] Cam Regalado MD POINT OF CARE TEST ORDERA BLES Final Result * (ABNORMAL) Protime-INR (01/30/2025) INR 3.00(A) 0.90 - 1.10 EXTERNAL LAB Blood Result [facility] Historical Provider LAB BLOOD ORDERABLES Celine l Result EXTERNAL LAB * (ABNORMAL) Protime-INR (01/23/2025) INR 3.20(A) 0.90 - 1.10 EXTERNAL LAB Blood us Historical Provider MD LAB BLOOD ORDERABLES Celine l Result EXTERNAL LAB * (ABNORMAL) Protime-INR (01/16/2025) INR 3.40(A) 0.90 - 1.10 EXTERNAL LAB Blood Result [facility] Provider MD LAB BLOOD ORDERABLES Celine l Result EXTERNAL LAB * (ABNORMAL) Protime-INR (01/10/2025) INR 2.90(A) 0.90 - 1.10 EXTERNAL LAB Blood 01/10/2025 Result [facility] Provider MD LAB BLOOD ORDERABLES Celine l Result Performing Organization Address City/[facility]/ZIP Co de Phone Number EXTERNAL LAB * (ABNORMAL) Protime-INR (01/02/2025) INR 2.80(A) 0.90 - 1.10 EXTERNAL LAB Blood Result [facility] Provider MD LAB BLOOD ORDERABLES Celine l Result Performing Organization Address City/[facility]/ZIP Co de Phone Number EXTERNAL LAB * (ABNORMAL) Protime-INR (12/26/2024) INR 3.50(A) 0.90 - 1.10 EXTERNAL LAB Blood Result [facility] Provider MD LAB BLOOD ORDERABLES Celine l Result EXTERNAL LAB * (ABNORMAL) Protime-INR (12/19/2024) INR 3.30(A) 0.90 - 1.10 EXTERNAL LAB Blood Result [facility] Provider MD LAB BLOOD ORDERABLES Celine l Result EXTERNAL LAB * (ABNORMAL) Protime-INR (12/12/2024) INR 2.50(A) 0.90 - 1.10 EXTERNAL LAB Blood Result [facility] Provider MD LAB BLOOD ORDERABLES Celine l Result EXTERNAL LAB * (ABNORMAL) Protime-INR (12/05/2024) INR 3.60(A) 0.90 - 1.10 EXTERNAL LAB Blood Result [facility] Provider MD LAB BLOOD ORDERABLES Celine l Result Performing Organization Address [facility] Co de Phone Number EXTERNAL LAB * (ABNORMAL) Protime-INR (11/28/2024) INR 3.50(A) 0.90 - 1.10 EXTERNAL LAB Blood 11/28/2024 Result [facility] Provider MD LAB BLOOD ORDERABLES Celine l Result Performing Organization Address [facility] Co de Phone Number EXTERNAL LAB * (ABNORMAL) Protime-INR (11/21/2024) INR 3.30(A) 0.90 - 1.10 EXTERNAL LAB Blood Result [facility] Provider MD LAB BLOOD ORDERABLES Celine l Result EXTERNAL LAB * (ABNORMAL) Protime-INR (11/14/2024) INR 2.90(A) 0.90 - 1.10 EXTERNAL LAB Blood Result [facility] Provider MD LAB BLOOD ORDERABLES Celine l Result EXTERNAL LAB from Last 3 Months Insurance MEDICARE MEDICARE [facility] MEDICARE [employer] [facility] [place] [address] Care Teams Global Logistics Manager Relationship Specialty Start Date End Date Brionna Antony MD [address] [place] [address] PCP - General Family Medicine 03/19/20 Shannon Beck PA [address] [place] [address] Physician [employer] Merchandising Coordinator Family Medicine 03/24/20
--- OUTSIDE RECORDS SUMMARY | 2025-02-11 10:57 | XMS_ITS | Encounter Summary ---
Author Organization [facility] Address [address] [place] [address] Care Team Providers Care Field Crop I Farmworker Name Role Phone Non-Staff, Provider Primary Care Provider Ravindra Sanchez MD Unavailable [phone] None, Provider Primary Care Provider UnavailBrionna Quiñonez MD Primary Care Provider [phone] Ángel Linder MD Unavailable Unavailabl Anthony Pinzon APRN Unavailable [phone] Encounter Details Date Type Department Care Team (Late st Contact Info) Description 04/04/2016 Abstract [facility] [address] [place] [address] Citlaly Landaverde NP [address] [place] [address] Social History Tobacco Use Types Packs/Day Years [...] on filedocumented in this encounter Care Teams Field Crop I Farmworker Relationship Specialty Start Date End Date Non-Staff, Provider PCP - General 04/05/16 04/09/16 None, MD Vinay PCP - General 04/10/16 08/04/16 Brionna Antony MD [address] [place] [phone] PCP - General FAMILY PRACTICE 08/05/16 Ravindra Falk MD CARDIOVASCULAR DISEASE 04/05/16 Ángel Linder MD [address] [place] [phone] Vascular/Surgery Technician CLINICAL CARDIAC ELECTROPHYSIOLOGY 10/25/18 Anthony Benitez APRN [address] [place] [phone] Nurse Practitioner NURSE PRACTITIONER 04/04/19 documented as of this encounter
--- OUTSIDE RECORDS SUMMARY | 2025-02-11 10:57 | XMS_ITS | Clinical Summary ---
Author Organization [facility] Address [address] [place] [address] Care Team Providers Care Guest Relations Coordinator Name Role Phone Ravindra Falk MD Unavailable [phone] Brionna Antony MD Primary Care Provider [phone] Ángel Linder MD Unavailable UnavailAnthony Draper PLASTERER SPOT Unavailable [phone] Allergies Active Allergy Reactions Criticality Noted Date Comments Amlodipine Swelling High 04/04/2016 Ankle swelling Atenolol Myalgias High 12/25/2017 Hydrochlorothiazide Unknown 04/04/2016 Didn't tolerate it,doesn't remember specifics Lisinopril Cough 04/04/2016 Meperidine Hallucinations 11/23/2016 Niacin Myalgias 04/04/2016 Oxycodone Swelling 04/04/2016 Oxycodone-Acetaminophen Swelling 11/29/2011 Statins Myalgias 04/04/2016 Valsartan Unknown 04/04/2016 Doesn't remember specific info Medications aspirin EC 325 MG EC tabletIndicatio ns:blood thinner Take 325 mg by mouth. 01/02/2018 Active warfarin 2 MG tabletIndicatio ns:blood thinner;takes with 0.5 of 1mg tablet for a total of 2.5mg Take 2 mg by mouth daily. 1 05/09/2018 Active carvedilol 3.125 MG tabletIndicatio ns:Hypertension Take 3.125 mg by mouth 2 (two) times daily. Active furosemide 40 MG tabletIndicatio ns:swelling Take 40 mg by mouth daily as needed. Active warfarin 1 MG tabletIndicatio ns:blood thinner;takes with 2mg for a total of 2.5mg Take 0.5 mg by mouth daily. Active acetaminophen 500 MG tablet Take 500 mg by mouth every 6 (six) hours as needed for Pain. Active prednisoLONE acetate 1 % ophthalmic suspension SHAKE LQ AND INT 1 GTT IN OS QID DIRECTED. START AFTER SURGERY 1 11/02/2018 Active ofloxacin 0.3 % ophthalmic solution 1 11/02/2018 Active ketorolac 0.5 % ophthalmic solution 1 11/02/2018 Active Active Problems Problem Noted Date Diagnosed Date Right hip pain 03/10/2023 Mitral valve replaced 05/02/2018 Non-rheumatic mitral regurgitation 05/02/2018 SOB (shortness of breath) 12/05/2017 Chronic fatigue 11/23/2016 Nonrheumatic aortic valve insufficiency 11/24/19 17 CAD S/P percutaneous coronary angioplasty 2012 Overview (04/04/2016): s/p MICHELET to Mid LAD CAD (coronary artery disease) 01/22/2004 Overview (04/04/2016): CABG X2- RSVG to 1st OM, and RSVG to 2nd OM along with MVR Myocardial infarction ([facility]) 11/24/19 04 Overview (04/05/2016): non Q wave anterior myocardial infarction Hypertension Hyperlipidemia History of prolapse of bladder Irritable bowel syndrome Resolved Problems Problem Noted Date Diagnosed Date Resolved Date Mitral valve disorder 2017 Overview (04/04/2016): s/p MVR 12/13/2006 this is her second MVR Immunizations Immunization Administration Dates Next Due Influenza (Generic) 07/07/2017 Influenza Adult (Generic) 07/05/2021(Def erred: Patient Refused),07/15/2019,07/09/2018 Pneumococcal (Pneumovax 23) 07/15/2019 Shingrix 10/16/2019,08/15/2019 Tdap (Boostrix) 10/29/2022 Family History Medical History Relation Comments COPD Father Heart Disease Mother Parkinson's Disease Mother Relation Status Comments Brother 1 (Age 18) at age 18 in coal mining accident Brother 2 asbestos exposur e Father (Age 80) black lung and emphysema, coal carrier Mother (Age 76) Parkinson's an d pneumonia Sister 1 Alive hyperlipidemia Sister 2 Alive Social History Tobacco Use Types Packs/Day Years Used Date Smoking Tobacco: Former Cigarettes 1 2003 Smokeless Tobacco: Never Alcohol Use Standard Drinks/Week Comments Yes 6.7 (1 standard drink = 0.6 oz p ure alcohol) wine 4-5 per week PHQ-2 Answer Date Recorded PHQ-2 Score - If the patient scores above 3, please move on to questions 3-9 0 01/11/2022 Comments No Sex and Gender Information Value Date Recorded Sex Assigned at Not on file Legal Sex Female 9:27 PM CDT Gender Identity Not on file Sexual Orientation Not on file Occupation Industry Job Start Date Job End Date homemaker Not on file Not on file Not on file Last Filed Vital Signs Vital Sign Reading Time Taken Comments Blood Pressure 131/74 10/29/2022 8:10 PM [employer]SHA[employer] STRAIGHTENER Pulse 74 10/29/2022 6:32 PM [employer] Temperature 36.8 C (98.3 F) 10/29/2022 6:32 PM [employer]ENER Respiratory Rate 16 10/29/2022 6:32 PM [employer] Oxygen Saturation 97% 10/29/2022 8:30 PM [employer]ENER Inhaled Oxygen Concentration - - Weight 91.4 kg (201 lb 6.4 oz) 10/29/2022 6:32 P M [employer] Height 177.8 cm (5' 10 ) 10/29/2022 6:32 PM [employer] STRAIGHTENER Body Mass Index 28.9 10/29/2022 6:32 PM [employer] STRAIGHTENER Plan of Treatment Health Maintenance Due Date Last Done Comments Colorectal Cancer Screening Colonoscopy (10 Years) 1953 Hepatitis C 1971 RSV Immunization or 60+ Years (1 - Risk 60-74 years 1-dose series) 2013 ASCVD LDL 03/18/2017 03/18/2016, 02/20/2013 Annual Medicare Wellness Visit 2018 Pneumococcal Vaccine: 50+ Years (2 of 2 - PCV) 07/15/2020 07/15/2019 Mammogram Screening 05/24/2024 05/24/2022 COVID-19 Vaccine (1 - 2023-2 5 season) 2024 DTaP, Tdap and Td Vaccines ( 2 - Td or Tdap) 10/29/2032 10/29/2022 Zoster Vaccines Completed 10/16/2019, 08/15/2019 Dexa Scan (General) Completed 08/16/2022 Meningococcal B Vaccine Aged Out No l onger eligible based on patient's age to complete this topic Meningococcal Vaccine Aged Out No toña karon eligible based on patient's age to complete this topic RSV Immunizations Under 20 Months Aged Out No longer eligible b ased on patient's age to complete this topic Medical Devices Implanted Type Area Extruding Press Operator Device Identifier Shelf Expiration Date Model / Serial / Lot Iol Sergio [id number] - [id number] Implanted:Qty: 1 on 11/13/2018 by David Lynch MD at [facility] Lens Left: Eye [employer] 06/24/2023 [id number] / [id number] / N/A Description:Implant verified by Iol Sergio Sn60wf - [id number] Implanted:Qty: 1 on 11/27/2018 by David Lynch MD at [facility] Lens Right: Eye [employer] 06/24/2023 [id number] / [id number] / N/A Description:Lens verified pe r surgeon and chart Stent Stent Description:Heart stent x 1 Valve Valve Implant Description:Mitral valve Wire Wire Description:Chest wires Procedures Procedure Name Priority Date/Time Associated Diagnosis Comments BONE DENSITY/DEXA Routine 08/16/2022 11: 29 AM [employer]ANKSHAFT STRAIGHTENER Postmenopausal MG SCREENING W BASIL WALDO DIGI Routine 05/24/2022 10:51 AM CDT Visit for screening mammogram LIPID PANEL Routine 03/18/2016 from Last 3 Months or Most Recently Relevant to Health Maintenance Results * BONE DENSITY/DEXA (08/16/2022 11:29 AM [employer] STRAIGHTENER) Anatomical Region Laterality Modality Bone Bone Density 08/16/2022 4:29 PM [employer]ANKSHAFT STRAIGHTENER Impressions 08/16/2022 4:31 PM CRANKSHAFT STRAIGHTENER Impression: BMD measured at right total hip at WHO category level of osteopenia. BMD measured at left total hip, both femoral necks and AP lumbar spine at level of normal. Ordered By: SHANNON PATEL Interpreted By: Bright Yepez MD, 08/16/2022 4:29 PM Narrative 08/16/2022 4:31 PM [employer] STRAIGHTENER Examination: DEXA Bone densitometry EXAM DATE: 08/16/2022 11:29 AM Clinical history: Postmenopausal. Vitamin D use. Dairy product consumption. Weight-bearing exercise. Technique: DEXA bone minimal density evaluation was performed in the AP projection over the lumbar spine and over both hips in the AP projection utilizing standard imaging techniques. Assessment: The BMD measured at the AP spine L1-L4 is 1.031 g/cm2 with a T-score of -0.1 and a Z-Score of 1.9. Bone density is up to 10% below young normal. This patient is considered normal according to the World Health Organization (WHO) criteria. Fracture risk is low. The BMD measured at the femur total left is 0.817 g/cm2 with a T-score of -1.0 and a Z-Score of 0.4. Bone density is up to 10% below young normal. This patient is considered normal according to the World Health Organization (WHO) criteria. Fracture risk is low. The BMD measured at the left femoral neck is 0.740 g/sq cm resulting in a T score of -1.0 and a Z score of 0.8, values at the WHO category level of normal. The BMD measured at the femur total right is 0.803 g/cm2 with a T-score of -1.1 and aZ-Score of 0.3. The patient is considered osteopenic according to World Health Organization (WHO) criteria. Bone density is between 10 and 25% below young normal. Fracture risk is moderate. Treatment is advised. The BMD measured at the right femoral neck is 0.796 g/sq cm resulting in a T score of -0.5 and a Z score of 1.3, values at the WHO category level of normal. FRAX results: 10 year probability of major osteoporotic fracture 8.7% and of hip fracture 0.8%. Recommendations: All patients should ensure an adequate intake of dietary calcium and vitamin D. The NOF recommend adults under the age of 50 need 1000 mg of calcium and 400-800 IU of vitamin D daily. Effective therapy for the prevention and treatment of osteoporosis include biphosphonates. Follow-up: People with diagnosed cases of osteoporosis or at high risk for fracture should have regular bone mineral density test. For patients eligible for Medicare, routine testing is allowed once every 2 years. Testing frequency can be increased to one year for patients who have rapidly progressing disease, those who are receiving or discontinuing medical therapy to restore bone mass, or have additional risk factors. Based on these results, a followup exam is recommended in no earlier than 2 years. Procedure Note Bright Yepez MD - 08/16/2022 Examination: DEXA Bone densitometry EXAM DATE: 08/16/2022 11:29 AM Clinical history: Postmenopausal. Vitamin D use. Dairy productconsumption. Weight-bearing exercise. Technique: DEXA bone minimal density evaluation was performed in the APprojection over the lumbar spine and over both hips in the AP projectionutilizing standard imaging techniques. Assessment: The BMD measured at the AP spine L1-L4 is 1.031 g/cm2 with a T-score of-0.1 and a Z-Score of 1.9. Bone density is up to 10% below youngnormal. This patient is considered normal according to the World HealthOrganization (WHO) criteria. Fracture risk is low. The BMD measured at the femur total left is 0.817 g/cm2 with a T-score of-1.0 and a Z-Score of 0.4. Bone density is up to 10% below youngnormal. This patient is considered normal according to the World HealthOrganization (WHO) criteria. Fracture risk is low. The BMD measured at the left femoral neck is 0.740 g/sq cm resulting in aT score of -1.0 and a Z score of 0.8, values at the WHO category level ofnormal. The BMD measured at the femur total right is 0.803 g/cm2 with a T-score of-1.1 and aZ-Score of 0.3. The patient is considered osteopenicaccording to World Health Organization (WHO) criteria. Bone density isbetween 10 and 25% below young normal. Fracture risk is moderate.Treatment is advised. The BMD measured at the right femoral neck is 0.796 g/sq cm resulting in aT score of -0.5 and a Z score of 1.3, values at the WHO category level ofnormal. FRAX results: 10 year probability of major osteoporotic fracture 8.7% andof hip fracture 0.8%. Recommendations: All patients should ensure an adequate intake of dietary calcium andvitamin D. The NOF recommend adults under the age of 50 need 1000 mg ofcalcium and 400-800 IU of vitamin D daily. Effective therapy for theprevention and treatment of osteoporosis include biphosphonates. Follow-up: People with diagnosed cases of osteoporosis or at high risk for fractureshould have regular bone mineral density test. For patients eligible forMedicare, routine testing is allowed once every 2 years. Testing frequencycan be increased to one year for patients who have rapidly progressingdisease, those who are receiving or discontinuing medical therapy torestore bone mass, or have additional risk factors. Based on these results, a followup exam is recommended in no earlier than2 years. Impression: BMD measured at right total hip at WHO category level of osteopenia. BMD measured at left total hip, both femoral necks and AP lumbar spine atlevel of normal. Ordered By: SHANNON PATEL Interpreted By: Bright Yepez MD, 08/16/2022 4:29 PM us Shannon Patel PA-C DEXA Final Resul t * MG SCREENING W BASIL WALDO DIGI (05/24/2022 10:51 AM CDT) Anatomical Region Laterality Modality Breast Bilateral Mammography 06/01/2022 4:13 PM CDT Impressions 06/01/2022 4:14 PM CDT IMPRESSION: No suspicious change since the previous exams. Recommendation: 1: Routine Screening Bilateral in 1 Year Assessment: ACR BI-RADS 2 - BENIGN FINDING(S) Ordered By: SHANNON PATEL Interpreted By: Kenan Grijalva MD, 06/01/2022 4:13 PM Narrative 06/01/2022 4:14 PM CDT Examination: Digital screening mammogram with CAD. Clinical history: Asymptomatic patient presents for routine screening. Comparison: 10/26/2018, 07/20/2017, 06/20/2016, 06/15/2015. Technique: Bilateral digital mammograms. The exam was interpreted with the use of a computer-aided detection (CAD) system. Additional 3-D tomosynthesis images were acquired. Tissue density: The breast tissue contains scattered fibroglandular densities. Findings: The breast tissue contains scattered fibroglandular densities. Bilateral benign-appearing calcifications noted. No suspicious mass, microcalcification or area of architectural distortion can be identified. From a mammographic standpoint, routine followup in one year would seem adequate. Shannon Patel PA-C MAMMO Final Resul t * LIPID PANEL (03/18/2016) CHOLESTEROL 259 HDL 63 TRIGLYCERIDES 158 LDL (CALCULATED) 164 03/18/2016 Provider New Referring LABORATORY Final Res ult from Last 3 Months or Most Recently Relevant to Health Maintenance Insurance MEDICARE [employer] MEDICARE [employer] [facility] [employer] Care Teams Guest Relations Coordinator Relationship Specialty Start Date End Date [place] [phone] PCP - General FAMILY PRACTICE 08/05/16 Ravindra Falk MD CARDIOVASCULAR DISEASE 04/05/16 Ángel [place] [phone] Vascular/Glass Mould Cleaner CLINICAL CARDIAC ELECTROPHYSIOLOGY 10/25/18 Anthony Benite[place] [phone] Nurse Practitioner NURSE PRACTITIONER 04/04/19
--- OUTSIDE RECORDS SUMMARY | 2025-02-11 10:57 | XMS_ITS | Patient Health Record ---
Author Organization [facility] Address [address] [place] [address] Care Team Providers Care Pantry Goods Maker Name Role Phone Flori Mercado Unavailable [phone] Reason For Referral No Information Medications Medication SIG (Take, Route, Frequency, Duration) Notes Start Date End Date Status Stool Softener 100 MG 1 capsule as neede d Orally Once a day for 30 day(s) Unknown Metamucil 0.36 GM as directed Orally Unknown Vitamin D 25 MCG (1000 UT) 1 tablet Oral ly Once a day for 30 day(s) Unknown Furosemide 40 MG 1 tablet Orally Once a day for 30 day(s) Unknown Warfarin Sodium 3 MG 1 tablet Orally Onc e a day Unknown Verapamil HCl ER 240 MG 1 tablet Orally Once a day Unknown Aspirin 81 MG 1 tablet Orally Once a day Unknown Isosorbide Mononitrate ER 30 MG 1 tablet in the morning Orally Once a day Unknown Social History Tobacco Use: Social History Observation Description Date Details (start date - stop date) Former Smoker NA - NA Tobacco Use/Smoking Question Answer Notes Are you a former smoker Alcohol Screen Question Answer Notes Did you have a drink containing alcohol in the p ast year? 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 Last was s/p Redo mitral valve replacement using 25 mm carbomedics mechanical mitral valve 12/27/[address] Galan. On Warfarin at home, INR checked at home and dosed by PCP. Hx of rheumatic fever as a child. Problem Atherosclerotic heart disease of [place] coronary artery without angina pectoris (792727780898025) Atherosclerotic heart disease [place] coronary artery without angina pectoris (I25.10) Active confirmed CAD s/p CABG 2013, Redo CABG x4 FENTON to LAD, VG to MOM, VG to posterior lateral OM, VG to RCA 12/27/17. Problem Paroxysmal atrial fibrillation (245564721) Paroxysmal atrial fibrillation (I48.0) Active confirmed Currently in NSR Problem History of heart valve repair with prosthesis (571952405401585) Presence of prosthetic heart valve (Z95.2) Active confirmed MV repair, the MV replacememnt and then MVR mechanical 2 yrs agoo with CABG. On Warfarin at home, INR checked at home and dosed by PCP. Problem Essential hypertension (95778393) Essential (primary) hypertension (I10) Active confirmed Sensitive to some antihypertens [place]. Problem Mixed hyperlipidemia (963286292) Mixed hyperlipidemia (E78.2) Active confirmed intolerant to statin. Needs [facility] 9 Problem Mitral valve disorder (77926621) Nonrheumatic mitral (valve) stenosis (I34.2) Active confirmed Plan Of Treatment No Information Insurance Providers Payer Name Payer Address Payer Phone Subscriber Number Group Number Insured Name Patient Relationship to Insured Coverage Start Date Coverage End Date Medicare [address] [place] [address] [phone] [id number] Saida Dunn Self - patient is the insured [facility] Life Insurance [address] [place] [id number] Saida Dunn Self - patient is the insured Medical (General) History Medical History History ICD Code CAD s/p CABG 2013, Redo CABG x4 FENTON to LAD, VG to MOM, VG to posterior lateral OM, VG to RCA 12/27/17 Mitral valve stenosis s/p Re do mitral valve replacement using 25 mm carbomedics mechanical mitral valve 12/27/17 Hypertension Hyperlipidemia Paroxysmal AFib Cardiac Cath 12/26/17: 3 vesse l CAD, Normal LVEDP, 0/2 grafts patent (per patient, she had a double bypass done in 2003), Patent FENTON, Patent LAD stent, Ost RPDA to RPDA lesion 50% stenosed, Dist RCA lesion 50% stenosed, Medical therapy of CAD, CT surgery evaluation for MVR and possible CABG Echo 9/4/19: 55-60%, Grade 2 DD, Moderate AR, Mitral valve prosthesis: normal functioning mechanical valve present,Aortic root is mildly dilated 4.2 cm,Ascending aorta is mildly dilated 4.2 cm Labs 03/16/2020: BNP 128 Chest Xray 03/16/2020: No active cardiopu lmonary disease Stress Test 06/03/2020: Echo 06/03/2020: Surgical History Surgery Date(Month/Year)
--- OUTSIDE RECORDS SUMMARY | 2025-02-11 10:57 | XMS_ITS | Clinical Summary ---
Author Organization [facility] [address] Address [address] [place] [address] Care Team Providers Care Social Services Director Name Role Phone Brionna Antony MD Primary Care Provider Shannon Beck Unavailable [phone] Allergies Active Allergy Reactions Criticality Noted Date Comments Nebivolol Shortness of breath High 08/25/2022 Valsartan Swelling Medium 08/25/2022 Hydrochlorothiazide Swelling Medium 08/25/2022 Lisinopril Cough Low 11/29/2011 Amlodipine Swelling Medium 08/25/2022 Oxycodone Swelling Medium 04/04/2016 Evolocumab Muscle pain Medium 02/24/2023 Utculbn-Sat-Ufo Reductase Inhibitors Muscle pain Medium 04/04/2016 atorvastatin, [...] by mouth 2 (two) times a day Active acetaminophen (TYLENOL) 500 mg tablet Take [...] artery disease of n ative artery of atka heart with stable angina pectoris 07/08/2022 Encounters Date Type Department Care Team Description 02/06/2025 Anticoagulation Visit [facility] Cardiology [address] [place] [phone] Coretta Nova RN 02/05/2025 10:00 AM CDT Office Visit [address] [phone] Cam Regalado MD 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); Hyperlipidemia LDL goal <70; PAF (paroxysmal atrial fibrillation) (HCC); Pulmonary hypertension (HCC); Aortic root dilatation; Valvular heart disease 01/30/2025 Anticoagulation Visit [facility] Cardiology [address] [place] [phone] Deanne Vergara RN 01/23/2025 Anticoagulation Visit [facility] Cardiology [address] [place] [phone] Coretta Nova RN 01/16/2025 Anticoagulation Visit [facility] Cardiology [address] [place] [phone] Deanne Vergara RN 01/10/2025 Anticoagulation Visit [facility] Cardiology [address] [place] [address] [place] [phone] Cam Thomas, GARY 01/02/2025 Anticoagulation Visit [facility] Cardiology [address] [place] [address] [place] [phone] Daly Wilkes, GARY 12/26/2024 Anticoagulation Visit [facility]iology [address] [place] [address] [place] [phone] Daly Wilkes, GARY 12/19/2024 Anticoagulation Visit [facility]iology [address] [place] [address] [place] [phone] Daly Wilkes, GARY 12/12/2024 Anticoagulation Visit [facility] [address] [place] [phone] Deanne Vergara RN 12/05/2024 Anticoagulation Visit [place] [address] [place] [phone] Deanne Vergara RN 11/28/2024 Anticoagulation Visit [facility] Cardiology [address] [place] [address] [place] [phone] Cam Thomas, GARY 11/21/2024 Anticoagulation Visit [facility] Cardiology [address] [place] [address] [place] [phone] Deanne Vergara RN 11/14/2024 Anticoagulation Visit [facility] Cardiology [address] [place] [address] [place] [phone] Cam Thomas, RN from Last 3 Months Surgical History Surgery Date Site/Laterality Comments CORONARY ARTERY BYPASS GRAFT MITRAL VALVE SURGERY CHOLECYSTECTOMY Medical History Medical History Date Comments CAD (coronary artery disease) Atrial fibrillation (HCC) VHD (valvular heart disease) Hyperlipidemia Family History Medical History Relation Name Comments black lung Father Parkinsons Disease Mother Relation Name Status Comments Father Mother Social History Tobacco Use Types Packs/Day Years Used Date Smoking Tobacco: Former Cigarettes Smokeless Tobacco: Never Tobacco Cessation:Counseling Given: Not Answered Comments Unknown Sex and Gender Information Value Date Recorded Sex Assigned at Not on file Legal Sex Female 2:09 PM CDT Gender Identity Not on file Sexual Orientation Not on file Obstetrics History Last Filed Vital Signs Vital Sign Reading [...] 02/05/2025 10:16 AM CDT Plan of Treatment Health Maintenance Due Date Last Done Comments Colon Cancer Screening-Colonoscopy 1955 Depression Screening 1953 Fall Risk Assessment 1955 Hepatitis C Screening 1953 Hepatitis B Screening 1971 Well Visit 65+ 2018 Pneumococcal vaccine 65+ (2 of 2 - PCV) 07/15/2020 07/15/2019 Breast Cancer Screening-Mammogram 05/24/2023 022, 05/24/2022 Osteoporosis Screening-Bone Density Scan 08/16/2024 08/16/2022 Influenza Vaccine (Season Ended) 2025 07/15/2019, 07/09/2018, 07/07/2017 DTaP/Tdap/Td Vaccine (2 - Td or Tdap) 10/29/203212/2022 Zoster Vaccine Completed 10/16/2019, 08/15/2019 Procedures Procedure Name Priority Date/Time Associated Diagnosis Comments PROTIME-INR Routine 02/06/2025 ELECTROCARDIOGRAM REPORT Routine 025 11:50 AM CDT 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 PAF (paroxysmal atrial fibrillation) (HCC) POCT LIPID PANEL Routine 02/05/2025 10:1 9 AM CDT 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 Hyperlipidemia LDL goal <70 PROTIME-INR Routine 01/30/2025 PROTIME-INR Routine 01/23/2025 PROTIME-INR Routine 01/16/2025 PROTIME-INR Routine 01/10/2025 PROTIME-INR Routine 01/02/2025 PROTIME-INR Routine 12/26/2024 PROTIME-INR Routine 12/19/2024 PROTIME-INR Routine 12/12/2024 PROTIME-INR Routine 12/05/2024 PROTIME-INR Routine 11/28/2024 PROTIME-INR Routine 11/21/2024 PROTIME-INR Routine 11/14/2024 from Last 3 Months Results * (ABNORMAL) Protime-INR (02/06/2025) INR 3.00(A) 0.90 - 1.10 EXTERNAL LAB Blood Historical Provider LAB BLOOD ORDERABLES Celine remberto Result EXTERNAL LAB * Electrocardiogram Report (02/05/2025 11:50 AM CDT) Cam Regalado MD ECG ORDERABLES Final Res ult * (ABNORMAL) POCT lipid panel (02/05/2025 10:19 AM CDT) Cholesterol, POC 271 <200 MG/DL HDL, POC 51 >=40 mg/dL Triglycerides, POC 187(A) <=149 mg/dL LDL Cholesterol POC 183(A) <=129 mg/dL Chol/HDL Ratio, POC 3.6 NONE Non-HDL Cholesterol, POC 220 NONE mg/dL Cholesterol Total, POC 271(A) 30 - 199 mg/dL Capillary blood 02/05/2025 1 0:[address] [facility] Cam Regalado MD POINT OF CARE TEST ORDERA BLES Final Result * (ABNORMAL) Protime-INR (01/30/2025) Pathologist [facility] INR 3.00(A) 0.90 - 1.10 EXTERNAL LAB Blood Result [facility] Provider MD LAB BLOOD ORDERABLES Celine l Result EXTERNAL LAB * (ABNORMAL) Protime-INR (01/23/2025) [facility] INR 3.20(A) 0.90 - 1.10 EXTERNAL LAB Blood Result [facility] Provider MD LAB BLOOD ORDERABLES Celine l Result EXTERNAL LAB * (ABNORMAL) Protime-INR (01/16/2025) [facility] INR 3.40(A) 0.90 - 1.10 EXTERNAL LAB Blood Result [facility] Provider MD LAB BLOOD ORDERABLES Celine l Result EXTERNAL LAB * (ABNORMAL) Protime-INR (01/10/2025) Pathologist [facility] INR 2.90(A) 0.90 - 1.10 EXTERNAL LAB Blood 01/10/2025 Result [facility] Provider MD LAB BLOOD ORDERABLES Celine l Result EXTERNAL LAB * (ABNORMAL) Protime-INR (01/02/2025) INR 2.80(A) 0.90 - 1.10 EXTERNAL LAB Blood Result [facility] Provider MD LAB BLOOD ORDERABLES Celine l Result EXTERNAL LAB * (ABNORMAL) Protime-INR (12/26/2024) INR 3.50(A) 0.90 - 1.10 EXTERNAL LAB Blood Result [facility] MD LAB BLOOD ORDERABLES Celine l Result EXTERNAL LAB * (ABNORMAL) Protime-INR (12/19/2024) INR 3.30(A) 0.90 - 1.10 EXTERNAL LAB Blood Result [facility] Provider MD LAB BLOOD ORDERABLES Celine l Result EXTERNAL LAB * (ABNORMAL) Protime-INR (12/12/2024) INR 2.50(A) 0.90 - 1.10 EXTERNAL LAB Blood Result [facility] Provider MD LAB BLOOD ORDERABLES Celine l Result EXTERNAL LAB * (ABNORMAL) Protime-INR (12/05/2024) INR 3.60(A) 0.90 - 1.10 EXTERNAL LAB Blood Result [facility] Provider MD LAB BLOOD ORDERABLES Celine l Result EXTERNAL LAB * (ABNORMAL) Protime-INR (11/28/2024) INR 3.50(A) 0.90 - 1.10 EXTERNAL LAB Blood 11/28/2024 Historical Provider MD LAB BLOOD ORDERABLES Celine l Result EXTERNAL LAB * (ABNORMAL) Protime-INR (11/21/2024) INR 3.30(A) 0.90 - 1.10 EXTERNAL LAB Blood [facility] Provider MD LAB BLOOD ORDERABLES Celine l Result EXTERNAL LAB * (ABNORMAL) Protime-INR (11/14/2024) INR 2.90(A) 0.90 - 1.10 EXTERNAL LAB Blood [facility] Provider MD LAB BLOOD ORDERABLES Celine l Result Performing Organization Address City/[facility]/ZIP Co de Phone Number EXTERNAL LAB from Last 3 Months Insurance MEDICARE MEDICARE [employer] [place] [employer]ICARE [place] [employer] [place] Care Teams Social Services Director Relationship Specialty Start Date End Date Brionna Antony MD [address] [address] PCP - General Family Medicine 03/19/20 Shannon Beck PA [address] [place] [address] Physician [facility] Family [facility] 03/24/20
--- OUTSIDE RECORDS SUMMARY | 2025-02-11 10:57 | XMS_ITS | Clinical Summary ---
Author Organization [facility] Address [address] [place] [address] Care Team Providers Care Mixing Pan Tender Name Role Phone Unavailable Primary Care Provider Unavailabl e Source Comments [facility],non-owned Affiliates and Associated Physician Practices is amultiple site organization consisting of ambulatory clinics and hospital sitesin [place], [place], [place] and [place]. This disclosure is being madepursuant to the Care Everywhere program and may not contain all information available regarding this patient. Last updated 18.[facility] Social History Tobacco Use Types Packs/Day Years Used Date Smoking Tobacco: Never Assessed Comments Unknown Sex and Gender Information Value Date Recorded Sex Assigned at Not on file Legal Sex Female 11:49 AM CDT Gender Identity Not on file Sexual Orientation Not on file Last Filed Vital Signs Vital Sign Reading Time Taken Comments Blood Pressure 130/80 04/02/2013 9:59 AM CDT Pulse - - Temperature - - Respiratory Rate - - Oxygen Saturation - - Inhaled Oxygen Concentration - - Weight 89.4 kg (197 lb) 04/02/2013 9:59 AM CDT Height 180.3 cm (5' 11 ) 04/02/2013 9:59 AM CDT Body Mass Index 27.48 04/02/2013 9:59 AM CDT Plan of Treatment Health Maintenance Due Date Last Done Comments BONE DENSITY TESTING 1955 COLOGUARD (AGES 45-75) - COL ON CA SCREENING 1953 COLON MONITORING 1953 COLONOSCOPY - COLON CA SCREENING 1953 CT COLONOGRAPHY - COLON CA SCREENING 1953 Colorectal Cancer Screening 1953 FIT - COLON CA SCREENING 1953 FLEX SIG - COLON CA SCREENING 1953 LIPID TESTING 1953 MAMMOGRAM 1953 HEPATITIS C SCREENING 06/08/1971 DTAP/TDAP/TD VACCINES (1 - Tdap) 1972 PNEUMOCOCCAL VACCINE 50+ (1 of 1 - PCV) 2003 ZOSTER VACCINE (1 of 2) 2003 COVID-19 VACCINE ( - 2023-2 5 season) 2024 DEPRESSION SCREENING 09/25/2024 INFLUENZA VACCINE (Season Ended) 2025 Respiratory Syncytial Virus (RSV) Vaccine Pt: or over 60 yrs (1 - 1-dose 75+ series) 2028 HEPATITIS B VACCINE Aged Out No longe r eligible based on patient's age to complete this topic HIB VACCINE Aged Out No longer eligi ble based on patient's age to complete this topic HPV VACCINE Aged Out No longer eligi ble based on patient's age to complete this topic MENINGOCOCCAL (Group B) VACC INE SHARED DECISION-MAKING Aged Out No longer eligibl e based on patient's age to complete this topic MENINGOCOCCAL GROUPS A/C/Y/W VACCINE Aged Out No longer eligible b ased on patient's age to complete this topic
--- OUTSIDE RECORDS SUMMARY | 2025-02-11 14:44 | XMS_ITS | Encounter Summary ---
Author Organization [facility] Address [address] [facility] Attn: Epic Prelude ADT [place]INSOME O[place] [address] Care Team Providers Care Immigration Manager Name Role Phone Unavailable Primary Care Provider Unavailabl e Encounter Details Date Type Department Care Team (Late st Contact Info) Description 10/14/1997 Outpatient Historical Conversion, History Venu Martins Social History Tobacco Use Types Packs/Day Years Used Date Smoking Tobacco: Never Assessed Comments Unknown Sex and Gender Information Value Date Recorded Sex Assigned at Not on file Legal Sex Female 2:57 AM GATE TENDER Gender Identity Not on file Sexual Orientation Not on file documented as of this encounter Plan of Treatment Not on file documented as of this encounter Visit Diagnoses Not on filedocumented in this encounter
--- OUTSIDE RECORDS SUMMARY | 2025-02-11 14:44 | XMS_ITS | Clinical Summary ---
Author Organization [facility] Address [address] [place] [address] Phone Care Team Providers Care Files Supervisor Name Role Phone Unavailable Primary Care Provider [...] on file Legal Sex Female 2:57 AM MARKET RESEARCH WORKER Gender Identity Not on file Sexual Orientation [...] lb 3.2 oz) 11/29/2011 1:31 P M MARKET RESEARCH WORKER Height 185.4 cm (6' 1 ) 11/29/2011 1:31 PM MARKET RESEARCH WORKER Body Mass Index 23.51 11/29/2011 1:31 PM MARKET RESEARCH WORKER Plan of Treatment Health Maintenance Due Date [...] (1 - 1-dose 75+ series) 2028 Insurance [employer] O OPEN ACCESS Advance Directives For more information, please contact: [phone] * Full Code (Latest Code Status on File) Date Activated Date Inactivated Comments 12/06/2011 2:52 PM 12/07/2011 1:06 PM * Full Code Date Activated Date Inactivated Comments 12/06/2011 9:13 AM 12/06/2011 2:52 PM
--- OUTSIDE RECORDS SUMMARY | 2025-02-11 14:44 | XMS_ITS | Encounter Summary ---
Author Organization [facility] Address [address] [facility] Attn: Epic Prelude ADT ZACHARIAHWINSOME [place] [address] Care Team Providers Care Roving Can Tender Name Role Phone Unavailable Primary Care Provider Unavailabl e Encounter Details Date Type Department Care Team (Late st Contact Info) Description 03/20/1997 Outpatient Historical Conversion, History Venu Martins Social History Tobacco Use Types Packs/Day Years Used Date Smoking Tobacco: Never Assessed Comments Unknown Sex and Gender Information Value Date Recorded Sex Assigned at Not on file Legal Sex Female 2:57 AM SAP PP CONSULTANT Gender Identity Not on file Sexual Orientation Not on file documented as of this encounter Plan of Treatment Not on file documented as of this encounter Visit Diagnoses Not on filedocumented in this encounter
--- OUTSIDE RECORDS SUMMARY | 2025-02-11 14:44 | XMS_ITS | Encounter Summary ---
Author Organization [facility] Address [address] [place] [address] Care Team Providers Care Warehouse Selector Name Role Phone Unavailable Primary Care Provider Unavailabl e Encounter Details Date Type Department Care Team (Late st Contact Info) Description 07/06/1999 Outpatient Historical [facility],NON-PATIENT Venu Martins Social History Tobacco Use Types Packs/Day Years Used Date Smoking Tobacco: Never Assessed Comments Unknown Sex and Gender Information Value Date Recorded Sex Assigned at Not on file Legal Sex Female 2:57 AM HISTOLOGICAL ILLUSTRATOR Gender Identity Not on file Sexual Orientation Not on file documented as of this encounter Plan of Treatment Not on file documented as of this encounter Visit Diagnoses Not on filedocumented in this encounter
--- OUTSIDE RECORDS SUMMARY | 2025-02-11 14:44 | XMS_ITS | Encounter Summary ---
Author Organization [facility] Address [address] [facility] Attn: Epic Prelude ADT [place]ACHAR[place]HWINSOME O[place] [address] Care Team Providers Care Customer Records Division Supervisor Name Role Phone Unavailable Primary Care Provider Unavailabl e Encounter Details Date Type Department Care Team (Late st Contact Info) Description 01/27/1994 Outpatient Historical Venu Martins Social History Tobacco Use Types Packs/Day Years Used Date Smoking Tobacco: Never Assessed Comments Unknown Sex and Gender Information Value Date Recorded Sex Assigned at Not on file Legal Sex Female 2:57 AM PUBLIC DEFENDER Gender Identity Not on file Sexual Orientation Not on file documented as of this encounter Plan of Treatment Not on file documented as of this encounter Visit Diagnoses Not on filedocumented in this encounter
--- OUTSIDE RECORDS SUMMARY | 2025-02-11 14:44 | XMS_ITS | Clinical Summary ---
Author Organization [facility] Address [address] [place] [address] Care Team Providers Care Motorcycle Engine Assembler Name Role Phone Unavailable Primary Care Provider Unavailabl e Source Comments [facility],non-owned Affiliates and Associated Physician Practices is amultiple site organization consisting of ambulatory clinics and hospital sitesin [place], [place], [place] and [place]. This disclosure is being madepursuant to the Care Everywhere program and may not contain all information available regarding this patient. Last updated 18.[facility] Social History Tobacco Use Types Packs/Day Years [...]
--- OUTSIDE RECORDS SUMMARY | 2025-02-11 14:44 | XMS_ITS | Encounter Summary ---
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
== END 2025-02-11 14:38 | disposition home or self-care (01) ==
PROVIDERS: PCP Family Medicine; Visit Provider Internal Medicine Cardiovascular Disease
DX: I77.810 Thoracic aortic ectasia (principal)
CPT/HCPCS: 71250